=== PATIENT | female | born 1955 | race Caucasian/White ===

== ENCOUNTER 2018-03-21 10:43 | Emergency (ER) | payer MEDICARE, MEDICAID ==
[2018-03-21 11:09] VITALS: BP 122/74; PULSE 58; RESP 18; TEMP 98.4; O2SAT 97
--- NOTE | 2018-03-21 11:57 | C.PDOC ---
History Of Present Illness 62 year old female presents to the ED for evaluation of right foot pain for the last 3 days. Patient reports 1 month ago a piece of glass was lodged into the sole of her right foot, notes removing a piece of glass 1 month ago and pain resolved. now has 3 days of pain, and believes a small piece of glass remains. Notes she has not been able to sleep for the last 3 days and admits to taking Tylenol last night with no improvement. Denies fever, tingling, numbness, and any other associated symptoms. <Asha Carr - Last Filed: 03/21/18 15:04> <Caterina Lopez - Last Filed: 03/21/18 13:16> History Per: Patient History/Exam Limitations: no limitations Onset/Duration Of Symptoms: Days Current Symptoms Are (Timing): Still Present <Asha Carr - Last Filed: 03/21/18 15:04> Time Seen by Provider: 03/21/18 11:12 Chief Complaint (Nursing): Lower Extremity Problem/Injury Past Medical History Vital Signs: Last Vital Signs Temp 98.4 F 03/21/18 11:05 Pulse 58 L 03/21/18 11:05 Resp 18 03/21/18 11:05 BP 122/74 03/21/18 11:05 Pulse Ox 97 03/21/18 13:06 <Caterina Lopez - Last Filed: 03/21/18 13:16> Reviewed: Historical Data, Nursing Documentation, Vital Signs Vital Signs: Last Vital Signs Temp 98.4 F 03/21/18 11:05 Pulse 58 L 03/21/18 11:05 Resp 18 03/21/18 11:05 BP 122/74 03/21/18 11:05 Pulse Ox 97 03/21/18 11:05 - Medical History PMH: Anxiety, Hypercholesterolemia, Chronic Pain Surgical History: Cholecystectomy Family History: States: Unknown Family Hx - Social History Hx Tobacco Use: No Hx Alcohol Use: No Hx Substance Use: No - Immunization History Hx Tetanus Toxoid Vaccination: No Hx Influenza Vaccination: Yes Hx Pneumococcal Vaccination: No <Asha Carr - Last Filed: 03/21/18 15:04> Review Of Systems Except As Marked, All Systems Reviewed And Found Negative. Constitutional: Negative for: Fever Musculoskeletal: Positive for: Foot Pain (to the right sole.) Neurological: Negative for: Weakness, Numbness, Incoordination <Asha Carr - Last Filed: 03/21/18 15:04> Physical Exam - Physical Exam Appears: Non-toxic Skin: Warm, Dry, Other Head: Atraumatic, Normacephalic Neck: Normal ROM, Supple Cardiovascular: Rhythm Regular Extremity: Normal ROM (x4), Tenderness (to the medical aspect mid right foot sole. ), No Pedal Edema, No Calf Tenderness, Capillary Refill (less than 2 seconds to the right foot. ), No Deformity, Other (medical aspect mid right foot sole: rough excoriation to the sole that is non-tender. ) Pulses: Left Femoral: Normal, Right Femoral: Normal Neurological/Psych: Oriented x3, Normal Speech, Normal Motor, Normal Sensation, Normal Reflexes Gait: Steady <Asha Carr - Last Filed: 03/21/18 15:04> ED Course And Treatment O2 Sat by Pulse Oximetry: 97 (RA) Pulse Ox Interpretation: Normal - Other Rad X-ray RT Foot X-Ray: Viewed By Me, Read By Radiologist Interpretation: FINDINGS: BONES: No acute fracture or destructive bony lesion identified. JOINTS: No subluxation or dislocation. Diffuse degenerative joint disease seen throughout the forefoot midfoot and hindfoot articulations though mostly at the 1st metatarsophalangeal joint and the interphalangeal joints diffusely. SOFT TISSUES: No retained radiodense foreign body or emphysema soft tissue changes identified. OTHER FINDINGS: None. IMPRESSION: No retained radiodense foreign body or emphysema soft tissue change are identified. No fracture or destructive bony lesion evident. No dislocation. <Asha Carr - Last Filed: 03/21/18 15:04> Medical Decision Making Medical Decision Making: Plan: --X-ray Lat RT Foot --Given: Acetaminophen. Progress/Update: X-ray viewed by me. Patient stable for discharge home. Prescribed Tylenol and advised to visit PMD and follow up as needed. <Asha Carr - Last Filed: 03/21/18 15:04> Disposition <Caterina Lopez - Last Filed: 03/21/18 13:16> Counseled Patient/Family Regarding: Studies Performed, Diagnosis, Need For Followup, Rx Given - Disposition Disposition Time: 13:00 <Asha Carr - Last Filed: 03/21/18 15:04> - Disposition Referrals: [facility] [Outside] Disposition: HOME/ ROUTINE Condition: GOOD Additional Instructions: Realice un seguimiento en podologa para el dolor de edmonds pie. No se ve leo en el pie en la radiografa. [place] Tylenol o Motrin para el dolor. Prescriptions: Acetaminophen [Tylenol 325mg tab] 650 mg PO Q6 #30 tab Forms: Gen Discharge Inst Nigerian, [email or web address] (Nigerian) Print Language: LITHUANIAN - Clinical Impression Clinical Impression: Foot pain, right - PA / RN CARDIAC CATH / Resident Statement MD/DO has reviewed & agrees with the documentation as recorded. - Scribe Statement The provider has reviewed the documentation as recorded by the Scribe (Suzan Knapp.) All medical record entries made by the Scribe were at my direction and personally dictated by me. I have reviewed the chart and agree that the record accurately reflects my personal performance of the history, physical exam, medical decision making, and the department course for this patient. I have also personally directed, reviewed, and agree with the discharge instructions and disposition. <Asha Crar - Last Filed: 03/21/18 15:04>
--- NOTE | 2018-03-21 12:57 | RAD ---
Date of service: 03/21/2018 PROCEDURE: Right Foot Radiographs. HISTORY: eval for fb medial aspect mid foot on sole COMPARISON: None. FINDINGS: BONES: No acute fracture or destructive bony lesion identified. JOINTS: No subluxation or dislocation. Diffuse degenerative joint disease seen throughout the forefoot midfoot and hindfoot articulations though mostly at the 1st metatarsophalangeal joint and the interphalangeal joints diffusely. SOFT TISSUES: No retained radiodense foreign body or emphysema soft tissue changes identified. OTHER FINDINGS: None. IMPRESSION: No retained radiodense foreign body or emphysema soft tissue change are identified. No fracture or destructive bony lesion evident. No dislocation.
== END 2018-03-21 13:18 | disposition home or self-care (01) ==
LOC: C.ER 10:43
DX: M79.671 Pain in right foot (principal)